=== PATIENT | female | born 2000 | race Hispanic/Latino ===

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

== ENCOUNTER 2020-12-03 12:00 | Outpatient (CLI) | payer MEDICAID ==
[~2020-12-03] VITALS: Ht 165.1 cm; Wt 118.7 kg
[~2020-12-03 12:00] MED LIST changes: +HYDR-34 PO
[2020-12-03 12:23] LABS: BILIRUBIN,URINE NEGATIVE (NEGATIVE); CLARITY,URINE CLEAR; COLOR,URINE YELLOW; GLUCOSE, URINE (UA) NEGATIVE (NEGATIVE); KETONES,URINE NEGATIVE (NEGATIVE); LEUKOCYTE ESTERASE ,URINE NEGATIVE (NEGATIVE); NITRITE,URINE NEGATIVE (NEGATIVE); PROTEIN,URINE NEGATIVE (NEGATIVE)
[2020-12-03 12:31] LABS: BACTERIA,URINE TRACE /HPF
[2020-12-03] MEDS ORDERED: PREN-8 PO (12:31)
[2020-12-03] MEDS ORDERED: ACETAMINOPHEN 500 MG TAB (TYLENOL) ONE (12:41)
[2020-12-03 12:45] VITALS: BP 124/63
[2020-12-03] MEDS ORDERED: ACETAMINOPHEN 500 MG TAB (TYLENOL) PO ONE (13:00)
--- NOTE | 2020-12-04 07:46 | Physician Query-Final Dx ---
DICK BROOKS 12/04/20 0745: Clinic Account Progress/Dx Physician Query: Please give diagnosis Please include # weeks gestation Date of Service December 03, 2020 at 12:00 LUKAS DALEY MD 12/07/20 0800: Clinic Account Progress/Dx DIAGNOSIS: Diagnosis 1. IUP in 3rd trimester 2. Uterine irritability without labor DICK BROOKS December 04, 2020 07:45 LUKAS DALEY MD December 07, 2020 08:00
== END 2020-12-03 14:40 | disposition home or self-care (01) ==
LOC: WSo 12:00 → LDRP 12:01 → WSo 14:40
PROVIDERS: ATTEND Family Medicine
DX: O62.9 Abnormality of forces of labor, unspecified (principal); Z3A.00 Weeks of gestation of pregnancy not specified
CPT/HCPCS: 81000; G0463; 99213

== ENCOUNTER 2021-02-25 08:48 | Outpatient (CLI) | payer SELFPAY ==
[~2021-02-25] VITALS: Ht 165.1 cm; Wt 125.8 kg
[~2021-02-25 08:48] MED LIST changes: +PREN-8 PO
[2021-02-25 09:15] VITALS: BP 127/78
[2021-02-25 09:23] VITALS: BP 127/78
[2021-02-25 09:25] VITALS: BP 127/78
[2021-02-25 09:50] VITALS: BP 131/73
[2021-02-25 10:15] VITALS: BP 132/80
--- NOTE | 2021-02-26 08:19 | Physician Query-Final Dx ---
Clinic Account Progress/Dx Physician Query: Please give diagnosis Please include # weeks gestation Date of Service Feb 25, 2021 at 08:48 DICK BROOKS Feb 26, 2021 08:18
== END 2021-02-25 10:40 | disposition home or self-care (01) ==
LOC: WSo 08:48 → LDRP 08:49 → WSo 10:40
PROVIDERS: ATTEND Family Medicine
DX: O46.90 Antepartum hemorrhage, unspecified, unspecified trimester (principal); Z3A.00 Weeks of gestation of pregnancy not specified
CPT/HCPCS: 99212

== ENCOUNTER 2021-03-16 02:52 | Inpatient (IN) | payer SELFPAY ==
[2021-03-16] VITALS (29 sets, daily range): BP systolic 108–165; BP diastolic 52–93
[~2021-03-16] VITALS: Ht 167.7 cm; Wt 127.2 kg
[2021-03-16] MEDS ORDERED: D5 LR IV SOLUTION 1,000 ML IV SCH (03:30)
[2021-03-16] MEDS ORDERED: D5 LR IV SOLUTION 1,000 ML IV ONE (03:35)
[2021-03-16] MEDS ORDERED: OXYTOCIN PRE-MIX DRIP 500 ML IV ONE (03:36)
[2021-03-16 03:48] LABS: BASOPHILS % (AUTO) 0 % (0-10); BILIRUBIN,URINE NEGATIVE (NEGATIVE); CLARITY,URINE SL CLOUDY; COLOR,URINE YELLOW; EOSINOPHILS # (AUTO) 0.1 10^3/uL (0.0-0.3); EOSINOPHILS % (AUTO) 0 % (0-10); GLUCOSE, URINE (UA) NEGATIVE (NEGATIVE); HEMATOCRIT 33 % (35-52); HEMOGLOBIN 11.1 g/dL (11.5-16.0); KETONES,URINE 3+ (NEGATIVE); LEUKOCYTE ESTERASE ,URINE 2+ (NEGATIVE); LYMPHOCYTES # (AUTO) 1.9 10^3/uL (1.0-4.0); LYMPHOCYTES % (AUTO) 11 % (12-44); MEAN CORPUSCULAR HEMOGLOBIN 29 pg (25-34); MEAN CORPUSCULAR HGB CONC 33 g/dL (32-36); MEAN CORPUSCULAR VOLUME 87 fL (80-99); MEAN PLATELET VOLUME 10.6 fL (9.0-12.2); MONOCYTES # (AUTO) 1.2 10^3/uL (0.0-1.0); MONOCYTES % (AUTO) 7 % (0-12); NEUTROPHILS # (AUTO) 14.1 10^3/uL (1.8-7.8); NEUTROPHILS % (AUTO) 81 % (42-75); NITRITE,URINE NEGATIVE (NEGATIVE); PLATELET COUNT 268 10^3/uL (130-400); PROTEIN,URINE NEGATIVE (NEGATIVE); WHITE BLOOD COUNT 17.4 10^3/uL (4.3-11.0)
[2021-03-16 04:08] LABS: BACTERIA,URINE FEW /HPF; WBC,URINE 25-50 /HPF
[2021-03-16 04:21] LABS: LYMPHOCYTES % (MANUAL) 15 %; MONOCYTES % (MANUAL) 6 %; NEUTROPHILS % (MANUAL) 79 %; RBC MORPH NORMAL
[2021-03-16] MEDS ORDERED: fentaNYL 2 mcg/ml BUPIVA 0.125 100 ML ONE (04:30)
[2021-03-16] MEDS ORDERED: BUPIVACAINE 0.25% 30 ML (SENSORCAINE) VIAL ONE (04:53)
[2021-03-16] MEDS ORDERED: fentaNYL INJ 100 MCG/2 ML AMP ONE (04:53)
[2021-03-16] MEDS ORDERED: fentaNYL INJ 100 MCG/2 ML AMP INJ ONE (05:00)
[2021-03-16] MEDS ORDERED: EPIDURAL (fentaNYL 2 MCG/ML BUPIVA 0.125%)100 ML BAG EPI PRN (05:00)
[2021-03-16] MEDS ORDERED: LACTATED RINGERS 1,000 ML IV ONE ×2 (05:00)
[2021-03-16] MEDS ORDERED: NALOXONE 0.4 MG/ML 1 ML (NARCAN) VIAL IV PRN ×2 (05:00→06:30)
[2021-03-16] MEDS ORDERED: ONDANSETRON 4 MG/2 ML (SDV) Z0FRAN IV PRN (05:00)
[2021-03-16] MEDS ORDERED: CATHETER FLUSH 10 ML SYR IV SCH ×2 (06:00→14:00)
--- NOTE | 2021-03-16 06:15 | History & Physical-OB ---
OB - Chief Complaint & HPI Date/Time Date of Admission: Date of Admission: Mar 16, 2021 at 03:22 Date seen by a Provider: Mar 16, 2021 Time Seen by a Provider: 05:40 Chief Complaint/History OB-Reason for Admission/Chief: Onset of Labor Hx : 2 Hx Para: 1 Expected Date of Delivery: Mar 31, 2021 Gestational Age in Weeks: 38 Admission Nurse Assessment Rev: Yes History of Labs GBS negative Allergies and Home Medications Allergies Coded Allergies: Iodinated Contrast Media (Verified Allergy, Severe, 11/26/17) shellfish derived (Verified Allergy, Unknown, 03/16/21) Patient Home Medication List Home Medication List Reviewed: Yes Vit W-Ca,Fe,FA(<1 mg) ( Formula) 1 Each Tablet, 1 EACH PO, (Reported) Entered as Reported by: ZACK BONILLA on 12/03/20 1231 Last Action: Reviewed OB - History Hx of Present Care: Yes Ultrasounds: Normal mid trimester US Obstetrical Complications: None Medical Complications: None Delivery History Hx Blood Disorders: Yes (AFTER CHILD -ANEMIA) Adverse Rxn to Tranfusion: No (HAS HAD BLOOD WITH NO REACTION) Patient Past Medical History PMHx: Asthma Anxiety PSurgHx: Facial tumor removed with 3 surgeries age 10-12 Social History/Family History 2nd Hand Smoke Exposure: No Immunizations Tetanus Booster (TDap): Less than 5yrs OB - Admission Exam Physical Exam Vitals: Vital Signs HEENT: Moist Membranes Heart: Rhythm Normal Lungs: Clear Abdomen: Gravid Cervical Dilatation: 5cm (on admission) Effacement: 75% Station: -1 Membranes: Intact Heart Rate: 140's Accelerations: Accelerations Present Decelerations: No Decelerations Short Term Variability: Present Contractions on Admission: < 5 Minutes Apart Intensity: Moderate Labs Laboratory Tests Test 03/16/21 03:28 Range/Units White Blood Count 17.4 H 4.3-11.0 10^3/uL Red Blood Count 3.84 3.80-5.11 10^6/uL Hemoglobin 11.1 L 11.5-16.0 g/dL Hematocrit 33 L 35-52 % Mean Corpuscular Volume 87 80-99 fL Mean Corpuscular Hemoglobin 29 25-34 pg Mean Corpuscular Hemoglobin Concent 33 32-36 g/dL Red Cell Distribution Width 13.4 10.0-14.5 % Platelet Count 268 130-400 10^3/uL Mean Platelet Volume 10.6 9.0-12.2 fL Immature Granulocyte % (Auto) 1 % Neutrophils (%) (Auto) 81 H 42-75 % Lymphocytes (%) (Auto) 11 L 12-44 % Monocytes (%) (Auto) 7 0-12 % Eosinophils (%) (Auto) 0 0-10 % Basophils (%) (Auto) 0 0-10 % Neutrophils # (Auto) 14.1 H 1.8-7.8 10^3/uL Lymphocytes # (Auto) 1.9 1.0-4.0 10^3/uL Monocytes # (Auto) 1.2 H 0.0-1.0 10^3/uL Eosinophils # (Auto) 0.1 0.0-0.3 10^3/uL Basophils # (Auto) 0.0 0.0-0.1 10^3/uL Immature Granulocyte # (Auto) 0.2 H 0.0-0.1 10^3/uL Neutrophils % (Manual) 79 % Lymphocytes % (Manual) 15 % Monocytes % (Manual) 6 % Blood Morphology Comment NORMAL Urine Color YELLOW Urine Clarity SL CLOUDY Urine pH 7.0 5-9 Urine Specific [place] 1.025 H 1.016-1.022 Urine Protein NEGATIVE NEGATIVE Urine Glucose (UA) NEGATIVE NEGATIVE Urine Ketones 3+ H NEGATIVE Urine Nitrite NEGATIVE NEGATIVE Urine Bilirubin NEGATIVE NEGATIVE Urine Urobilinogen 0.2 < = 1.0 MG/DL Urine Leukocyte Esterase 2+ H NEGATIVE Urine RBC (Auto) 3+ H NEGATIVE Urine RBC 5-10 H /HPF Urine WBC 25-50 H /HPF Urine Squamous Epithelial Cells 5-10 /HPF Urine Renal Epithelial Cells NONE /HPF Urine Crystals NONE /LPF Urine Bacteria FEW H /HPF Urine Casts NONE /LPF Urine Mucus NEGATIVE /LPF Urine Culture Indicated YES OB - Assessment/Plan/Diagnosis Assessment Assessment: active labor (at 38 weeks gestation) Admission Dx 1. IUP at term 38 weeks. Admission Status: Inpatient Order (span 2 midnights) Reason for Inpatient Admission: L&D Plan Plan: Expectant Management Induction Method: AROM Other Plan -epidural LUKAS DALEY MD Mar 16, 2021 06:15
--- NOTE | 2021-03-16 06:18 | OB Labor & Delivery Record ---
L&D History Date of Service Date of Service: Mar 16, 2021 History Expected Date of Delivery: Mar 31, 2021 Gestational Age in Weeks: 38 Hx : 2 Hx Para: 2 Complications Events: Routine care Operative Indications (Cesarea: N/A-Vaginal Delivery Intrapartal Events: None L&D Stage1 Stage One Onset of Labor - Date: Mar 16, 2021 Onset of Labor - Time: 01:00 Monitors and Tracing Monitor Mode: External Monitor Accelerations: Uniform Monitor Decelerations: None Station: -1 Usp Variability: Average (6-10) Short Term Variability: Present Presentation: Vertex Vital Signs VS - Last 72 Hours, by Label 03/16/21 03/16/21 03:14 03:14 Temp 36.3 36.3 Pulse 93 93 Resp 18 18 B/P (MAP) 144/67 (92) Pulse Ox 98 98 O2 Delivery Room Air Room Air Signs of Distress by FHT Signs of Distress no Rupture of Membranes Spontaneous Ruture of Membrane: No Amniotic Membrane Rupture Time: 05:45 Amniotic Membrane Fluid Desc.: Clear Vaginal Bleeding Description: None L&D Stage2 Stage Two Stage II Date: Mar 16, 2021 Stage II Time: 05:52 Monitors and Tracing Monitor Mode: External Monitor Accelerations: Uniform Monitor Decelerations: None Usp Variability: Average (6-10) Short Term Variability: Present Position: Left Occiput Anterior Presentation: Vertex Signs of Distress by FHT Signs of Distress no Cord Descript/Complications Cord Vessel Description: 3 Vessels Delivery Type Delivery Method: Spontaneous Vaginal Anterior Shoulder: Left Episiotomy/Perineal Laceration Laceraction(s)/Extensions: No Condition of Infant Delivery 1 minute Comment: 8 5 minute Comment: 9 Condition of Condition of : Living Exam: No Observed Abnormalities Resuscitation Resuscitation: N/A - Spontaneous Resp L&D Stage3 Stage Three Stage III Date: Mar 16, 2021 Stage III Time: 05:57 Pictocin Pitocin ml/hr: 125 Placenta Delivery Placenta Delivery: Spontaneous Delivery Summary Summary Estimated blood loss (mL): 100 Condition of Delivery Examined: Cervix Examined Post Hemorrhage: No Intervention Required none LUKAS DALEY MD Mar 16, 2021 06:18
[2021-03-16] MEDS ORDERED: BENZOCAINE/MENTHOL (DERMOPLAST) 56 ML CAN TP PRN (06:30)
[2021-03-16] MEDS ORDERED: WITCH HAZEL(TUCKS) 40 EA JAR TOP PRN (06:30)
[2021-03-16] MEDS ORDERED: MEASLES,MUMPS,RUBELLA 1 EA INJ SQ ONE (06:30)
[2021-03-16] MEDS ORDERED: OXYTOCIN PRE-MIX DRIP 500 ML IV SCH (06:30)
[2021-03-16] MEDS ORDERED: TETANUS,DIPTH,PERTUSS P/F (BOOSTRIX) 0.5 ML VIAL IM ONE (06:30)
[2021-03-16] MEDS ORDERED: IBUPROFEN 600 MG (MOTRIN) TAB PO ONE (09:48)
[2021-03-16] MEDS: IBUPROFEN 600 MG (MOTRIN) TAB PO SCH ×3 (09:51→22:12)
[2021-03-16] MEDS: ACETAMINOPHEN 500 MG TAB (TYLENOL) PO SCH ×2 (12:42→18:42)
[2021-03-16] MEDS: DOCUSATE SODIUM 100 MG (COLACE) CAP PO SCH ×2 (12:45→20:00)
[2021-03-17 00:50] VITALS: BP 119/62
[2021-03-17] MEDS: ACETAMINOPHEN 500 MG TAB (TYLENOL) PO SCH ×2 (00:52→06:46)
[2021-03-17] MEDS: IBUPROFEN 600 MG (MOTRIN) TAB PO SCH ×2 (04:29→10:47)
[2021-03-17 04:30] VITALS: BP 133/63
[2021-03-17 06:20] LABS: BASOPHILS % (AUTO) 0 % (0-10); EOSINOPHILS # (AUTO) 0.2 10^3/uL (0.0-0.3); EOSINOPHILS % (AUTO) 1 % (0-10); HEMATOCRIT 32 % (35-52); HEMOGLOBIN 9.9 g/dL (11.5-16.0); LYMPHOCYTES # (AUTO) 2.8 10^3/uL (1.0-4.0); LYMPHOCYTES % (AUTO) 20 % (12-44); MEAN CORPUSCULAR HEMOGLOBIN 28 pg (25-34); MEAN CORPUSCULAR HGB CONC 31 g/dL (32-36); MEAN CORPUSCULAR VOLUME 91 fL (80-99); MEAN PLATELET VOLUME 10.6 fL (9.0-12.2); MONOCYTES % (AUTO) 7 % (0-12); NEUTROPHILS % (AUTO) 71 % (42-75); PLATELET COUNT 245 10^3/uL (130-400); WHITE BLOOD COUNT 14.1 10^3/uL (4.3-11.0)
--- NOTE | 2021-03-17 07:35 | Discharge Inst-Women's Service ---
Discharge Inst-Women's Serv Depart Medication/Instructions New, Converted or Re-Newed RX: Other Instructions May take ibuprofen [id number] 2 to 3 tablets every 6 hours if needed for cramps or discomfort. Problems Reviewed?: Yes Consults/Follow Up Additional Follow Up: Yes (With Dr. Corral in 6 weeks at [facility]) Activity Activity: Activity as Tolerated Driving Instructions: No Driving for 1 Week Nothing Inside Vagina: No [place] (For 6 weeks) Diet Discharge Diet: Regular Diet Return to The Hospital For: As below Symptoms to Report to : Bleeding Excessive, Constipation(Persistant), Fever Over 101 Degrees F, Vaginal Discharge LUKAS Huston MD Mar 17, 2021 07:35
--- NOTE | 2021-03-17 07:39 | Discharge Summary ---
Diagnosis/Chief Complaint Date of Admission Mar 16, 2021 at 03:22 Date of Discharge March 17, 2021 Admission Diagnosis Admission Diagnosis 1. Intrauterine at term 38 weeks Discharge Diagnosis 1. Intrauterine duty at term 38 weeks 2. Mild anemia following spontaneous vaginal Chief Complaint/HPI Chief Complaint/HPI 21-year-old 2 now term2 L2 who initially presented to labor and delivery after spontaneous labor. She was found to be 5 cm dilated upon presentation. Her EDC is March 30, 2021. care was obtained through [facility] and myself. Discharge Summary-OBS Procedures 1. Epidural per anesthesia 2. Spontaneous vaginal delivery Discharge Physical Examination Allergies: Coded Allergies: Iodinated Contrast Media (Verified Allergy, Severe, 11/26/17) shellfish derived (Verified Allergy, Unknown, 03/16/21) Vitals & I&Os Vital Sign - Last 12Hours Date Time Temp Pulse Resp B/P (MAP) Pulse Ox O2 Delivery O2 Flow Rate FiO2 03/17/21 04:30 36.5 97 16 133/63 (86) 97 Room Air General Appearance: Alert, No Acute Distress Respiratory: Clear to Auscultation Cardiovascular: Regular Rate Abdominal: Normal Bowel Sounds, Soft (With uterus firm) Skin: No Rashes Hospital Course Patient presented during the credit review analyst of March 16, 2021 and active labor. She ultimately went on to completion and delivered over an intact perine um a term viable female. Infant weighed 8 pounds 11 ounces and was given Apgars of 9 at 1 minute and 9 at 5 minutes. See labor and delivery note for full details. Following delivery she underwent routine care orders. She had no complications during the remainder of hospital stay. Her hemoglobin in the morning is up from 2020 was 9.9 and this was compared to admission of 11.1. She was felt ready for dismissal during the late morning of March 17 and she will follow-up with myself in 6 weeks. Labs Laboratory Tests 03/17/21 05:14: White Blood Count 14.1H, Red Blood Count 3.48L, Hemoglobin 9.9L, Hematocrit 32L, Mean Corpuscular Volume 91, Mean Corpuscular Hemoglobin 28, Mean Corpuscular Hemoglobin Concent 31L, Red Cell Distribution Width 13.7, Platelet Count 245, Mean Platelet Volume 10.6, Immature Granulocyte % (Auto) 1, Neutrophils (%) (Auto) 71, Lymphocytes (%) (Auto) 20, Monocytes (%) (Auto) 7, Eosinophils (%) (Auto) 1, Basophils (%) (Auto) 0, Neutrophils # (Auto) 10.0H, Lymphocytes # (Auto) 2.8, Monocytes # (Auto) 1.0, Eosinophils # (Auto) 0.2, Basophils # (Auto) 0.0, Immature Granulocyte # (Auto) 0.2H Discharge Instructions to patient/family Please see electronic discharge instructions given to patient. Discharge Medications Reviewed and agree with Discharge Medication list on patient's Discharge In struction sheet LKUAS DALEY MD Mar 17, 2021 07:39
[2021-03-17 08:15] VITALS: BP 120/66
[2021-03-17] MEDS: DOCUSATE SODIUM 100 MG (COLACE) CAP PO SCH (08:23)
[2021-03-17 08:30] VITALS: BP 120/66
--- NOTE | 2021-03-17 11:06 | Anesthesia-Regional Post-Op ---
Regional Patient Condition Mental Status: Alert, Oriented x3 Circulation: Same as Pre-Op Headache: Absent Sensation: Full Recovery Motor Block: Absent Post Op Complications Complications None Follow Up Care/Instructions Patient Instructions None needed. Anesthesia/Patient Condition Patient is doing well, no complaints, stable vital signs, no apparent adverse anesthesia problems. No complications reported per nursing. AGUSTIN JOSUE CRNA Mar 17, 2021 11:06
--- NOTE | 2021-03-21 02:00 | Physician Query Clarification ---
PQ-Further Specificity Admission/Discharge Admission Date: Mar 16, 2021 at 03:22 Discharge Date: Mar 17, 2021 at 11:30 LUKAS Gutierres MD The medical record reflects the following clinical scenario: History/Risk Factors: [list no more than 2] Clinical Findings: [list no more than 2] Treatment: [list no more than 2] Question: Can you further specify [diagnosis/condition] per the clinical indicators above? Please document a response in the Progress Notes or Discharge Summary. 1. [list the #1 diagnosis/condition choice] 2. [list the diagnosis/condition already documented] 3. Other, with explanation of the clinical findings. 4. Clinically undetermined, no explanation for the clinical findings. Please remember a lack of response to the above will prompt a phone page by CDI/Coding staff. In responding to this query, please exercise your independent professional judgment. The purpose of this communication is to more accurately reflect the complexity of your patients condition. The fact that a question is asked does not imply that any particular answer is desired or expected. Thank you for your timely response to this clarification. Requestors name: [ ] Phone # [ ] THIS PHYSICIAN QUERY FORM IS A PERMANENT PART OF THE MEDICAL RECORD BUDDY PONDLety Mar 21, 2021 02:00
== END 2021-03-17 11:30 | disposition home or self-care (01) | DRG 806 ==
LOC: WSo 02:52 → LDRP 02:57 → WSo 03:22 → LDRP 10:00
PROVIDERS: ADMIT Family Medicine; ATTEND Family Medicine
PROC: 10E0XZZ Delivery of Products of Conception, External Approach (ICD-10-PCS; principal; 2021-03-16)
PROC: 10907ZC Drainage of Amniotic Fluid, Therapeutic from Products of Conception, Via Natural or Artificial Opening (ICD-10-PCS; 2021-03-16)
DX: O99.52 Diseases of the respiratory system complicating childbirth (principal); D62 Acute posthemorrhagic anemia; Z37.0 Single live birth; Z3A.38 38 weeks gestation of pregnancy; J45.909 Unspecified asthma, uncomplicated; O99.344 Other mental disorders complicating childbirth; F41.9 Anxiety disorder, unspecified; Z91.041 Radiographic dye allergy status; O90.81 Anemia of the puerperium
CPT/HCPCS: 36415; 81000; 85007; 85025; 85027; 86850; 86900; 86901; 87088; 99212

== ENCOUNTER → 2022-07-03 | Outpatient (CLI) | payer OTHER, MEDICAID ==
--- NOTE | 2022-07-03 14:46 | Diagnostic Imaging Report ---
Clinical indication: Patient fell backwards and hit her head. Patient a little foggy. Exam: Head CT without IV contrast with sagittal and coronal reformations. Axial CT scan of the cervical spine with sagittal and coronal reformations. Auto Exposure Controls were utilized during the CT exam to meet ALARA standards for radiation dose reduction. Comparison: None. Findings: Head CT: There is no evidence of acute cerebral infarct, intracranial hemorrhage, or gross mass effect. The brain parenchymal volume appears appropriate for patient's age. There is normal mak-white matter distinction. There is no significant midline shift or herniation. There is no evidence of hydrocephalus. The basal cisterns are unremarkable. The skull, extracranial soft tissue, and orbits are unremarkable. There is minimal mucosal thickening involving the right maxillary sinus and ethmoid sinus. Temporal bones show no significant abnormality. CT cervical spine: There is no acute cervical spine fracture or dislocation. There is reversal of the cervical lordosis. There is no prevertebral soft tissue swelling. There is no significant central canal or neural foramen narrowing. The neck soft tissue structures show no significant abnormality. Visualized upper lung hopkins are clear. Impression: 1: There is no evidence of acute intracranial process. There is no skull fracture. 2: There is no acute cervical spine fracture or dislocation. 3: There is reversal of the cervical lordosis. Dictated by: Dictated on workstation # [id number]
== END ==
LOC: RAD 14:15
PROVIDERS: ATTEND Nurse Practitioner Family
DX: Z04.2 Encounter for examination and observation following work accident (principal); S06.0X0A Concussion without loss of consciousness, initial encounter; M54.2 Cervicalgia; R53.81 Other malaise; R42 Dizziness and giddiness; R11.0 Nausea; H53.143 Visual discomfort, bilateral; W18.39XA Other fall on same level, initial encounter
CPT/HCPCS: 70450; 72125